=== PATIENT | female | born 1970 | race Caucasian/White ===

== ENCOUNTER 2016-10-15 19:49 | Inpatient (IN) | payer BC ==
[2016-10-15] MEDS ORDERED: NS 0.9% 1000 ML* 1,000 ML IV ONE (20:10)
--- NOTE | 2016-10-15 20:48 | ED ---
Blas Traylor SooYoung, scribed for Sixto iVllar MD on 10/15/16 at 2005 . Substance Abuse/Use - HPI Summary HPI Summary: LEVEL 5 CAVEAT: HPI LIMITED DUE TO PT CONDITION, OVERDOSE. A 46 y/o F MARINA presents to ED after overdose onset approx 1500 [employer]. Per EMS report, pt took approx 15-30 Xanax with wine today due to SI.. Pt is arousable with sternal rub at bedside. Pt is sleeping at bedside. - History Of Current Complaint Chief Complaint: EDSubstanceAbuse Stated Complaint: OVERDOSE/ETOH Time Seen by Provider: 10/15/16 20:00 Hx Obtained From: Patient Ingestion History: Type/Name Of Drug - Xanax, wine Overdose Characteristics: Oral Associated Signs And Symptoms: Intentional Ingestion, Other: - pos: SI Related Hx: Suicidal - Allergies/Home Medications Allergies/Adverse Reactions: Allergies Allergy/AdvReac Type Severity Reaction Status Date / Time No Known Allergies Allergy Verified 10/15/16 20:14 PMH/Surg Hx/FS Hx/Imm Hx Previously Healthy: No Psychiatric History: Reports: Hx Depression, Hx Bipolar Disorder Infectious Disease History: Denies: Traveled Outside the [place] in Last 30 Days - Family History Family History: LEVEL 5 CAVEAT: FHx/SHx LIMITED DUE TO PT CONDITION, OVERDOSE. Review of Systems - ROS Summary Review of Systems Summary: LEVEL 5 CAVEAT: ROS LIMITED DUE TO PT CONDITION, OVERDOSE. Positive: Other - pos: overdose Positive: Other - pos: SI All Other Systems Reviewed And Are Negative: No Physical Exam Triage Information Reviewed: Yes Vital Signs On Initial Exam: Initial Vitals BP 114/76 10/15/16 19:58 Vital Signs Reviewed: Yes Appearance: Positive: No Pain Distress, Thin Skin: Positive: Warm Head/Face: Positive: Normal Head/Face Inspection Eyes: Positive: BRITTNEE ENT: Positive: Hearing grossly normal Neck: Positive: Supple Respiratory/Lung Sounds: Positive: Clear to Auscultation, Breath Sounds Present Cardiovascular: Positive: RRR Abdomen Description: Positive: Nontender, Soft Bowel Sounds: Positive: Present Musculoskeletal: Positive: Strength/ROM Intact Neurological: Positive: Alert, Oriented to Person Place, Time Psychiatric: Positive: Depressed Diagnostics - Vital Signs Vital Signs Temp Pulse Resp BP Pulse Ox 10/15/16 20:06 99 F 100 16 116/75 100 10/15/16 20:00 99 20 116/75 100 10/15/16 19:59 98 27 100 10/15/16 19:58 114/76 - Laboratory Result Diagrams: 10/15/16 20:47 10/15/16 20:47 Lab Statement: Any lab studies that have been ordered have been reviewed, and results considered in the medical decision making process. - EKG 1 EKG Rhythm: Sinus Rhythm Re-Evaluation - Re-Evaluation First Eval Change: Unchanged - pt evaluated by crisis, will admit Course/Dx - Course Course Of Treatment: Pt is medically cleared for MHE at 0132. - Diagnoses Provider Diagnoses: Suicidal ideations - Physician Notifications Instructed by Provider To: Admit As Inpatient Discharge - Discharge Plan Condition: Fair Disposition: ADMITTED TO [facility] Instructions: Per completion of a mental health evaluation, you are cleared for release and do not require inpatient psychiatric hospitalization at this time. Please go to nearest emergency room or call 911 if safety concerns arise or condition worsens. Important Phone Numbers: [facility] [phone] Suicide Prevention and Crisis Services [phone] [facility] Suicide Prevention Lifeline [phone] ([phone]) [facility] [phone] Alcoholics Anonymous [phone] [facility] [phone] [place] [employer] [phone] The documentation as recorded by the Blas penny SooYoung accurately reflects the service I personally performed and the decisions made by me, Sixto Villar MD.
[2016-10-15 20:57] LABS: Hematocrit 36 % (35-47); Hemoglobin 12.4 g/dl (12.0-16.0); Mean Corpuscular HGB Conc 35 g/dl (31-36); Mean Corpuscular Hemoglobin 35 pg (27-31); Mean Corpuscular Volume 99 fL (80-97); Mean Platelet Volume 7 um3 (7.4-10.4); Red Blood Count 3.59 10^6/ul (4.0-5.4); Red Cell Distribution Width 13 % (10.5-15); White Blood Count 5.2 10^3/ul (3.5-10.8)
[2016-10-15 21:14] LABS: ALT 19 U/L (7-52); AST 17 U/L (13-39); Albumin 3.9 g/dL (3.2-5.2); Alkaline Phosphatase 43 U/L (34-104); Anion Gap 10 mmol/L (2-11); BUN/Creatinine Ratio 18.6 (8-20); Blood Urea Nitrogen 16 mg/dL (6-24); CO2 Carbon Dioxide 17 mmol/L (22-32); Calcium 8.6 mg/dL (8.6-10.3); Chloride 112 mmol/L (101-111); EGFR African American 92.2 (>60); EGFR Non-African American 71.7 (>60); Globulin 2.6 g/dL (2-4); Glucose 89 mg/dL (70-100); Potassium 3.7 mmol/L (3.5-5.0); Sodium 139 mmol/L (133-145); Total Protein 6.5 g/dL (6.4-8.9)
[2016-10-15 21:42] LABS: Acetaminophen < 15 mcg/mL; Alcohol 206 mg/dL (<10); Salicylate < 2.50 mg/dL (<30)
[2016-10-16] MEDS ORDERED: Mouth Piece, Nicotine* 1 EACH CARTRIDGE INH SCH (07:24)
[2016-10-16] MEDS ORDERED: Al Hydrox/Mg Hydrox/Simet LIQ* 30 ML UDC PO PRN (07:24)
[2016-10-16] MEDS ORDERED: Acetaminophen TAB* 325 MG PO PRN (07:24)
[2016-10-16] MEDS ORDERED: Nicotine GUM* 2 MG PO PRN (07:24)
[2016-10-16] MEDS ORDERED: chlorproMAZINE TAB* 50 MG Q6H PRN AGITATION PO (07:24)
[2016-10-16] MEDS ORDERED: Nicotine Inhaler* 10 MG AMP INH PRN (07:24)
[2016-10-16] MEDS ORDERED: LORazepam IM* PER WAM PARAMETERS IM SCH (08:00)
[2016-10-16] MEDS ORDERED: LORazepam TAB(*) WAM SCALE 0-6 MG PO SCH (08:00)
[2016-10-16] MEDS: Vitamin THERAPEUTIC TAB PO SCH (09:19)
[2016-10-16] MEDS: Thiamine TAB* 100 MG TAB DAILY (@ T+1) PO SCH (09:19)
[2016-10-16] MEDS: Folic Acid TAB* 1 MG DAILY PO SCH (09:19)
--- NOTE | 2016-10-16 12:18 | PN ---
MHU: Group Therapy Note - Service Type Service Type: 08063 Group Psychotherapy - Cognitive Behavioral Group Therapy ( CBT):Patient was attentive and participatory in CBT programming this morning, and remained in good behavioral control. Patient expressed positive insights regarding relevant treatment interventions and goals.
[2016-10-16] MEDS ORDERED: BuPROPion XL* 300 MG TAB.XL PO SCH (13:00)
[2016-10-16] MEDS: BuPROPion XL* 150 MG TAB.XL PO SCH (13:25)
[2016-10-16] MEDS: Acyclovir* 400 MG TAB PO SCH ×2 (13:25→21:13)
--- NOTE | 2016-10-16 15:31 | ADMNOTE ---
Identification - Identify Employment Status: Unemployed Hx Psychiatric Hospitalization: Yes - In [place] Prior Psychiatric Diagnosis: MDD and Alcohol use d/o Arrived to Hospital Via: Ambulatory History - Objective HPI: 46 y/o WF, mother of 2 children, unknown to this hospital was brought into the ED following an intentional OD on 15 Xanax( .25mg pills) and drinking 2 bottles of wine. Denied suicide attempts or intent at first and later her sister called to report about couple of other serious suicide attempts one requiring intubation. Acknowledges long h/o depression and alcohol dependence. Is in lot of stree related to impending divorce and child custody issue. Exam Appearance: Thin Framed Hygiene: Normal Grooming: Fairly Well Kept Psychomotor Activities: Abnormal-Decreased Attitude and Relatedness: Superficially Cooperative Eye Contact: Poor - Speech Quality: Unpressured Latencies: Normal Quantity: Appropriate Patient's Decription of Mood: "Fine" Observed Affect: Depressed Patient's Thought Process: Coherent, Goal Directed Thought Content: No Passive Wish, No Suicidal Planning, No Homicidal Ideation, No Paranoid Ideation Experiencing Hallucinations: No, Sensorium is Clear Type of Hallucinations: Visual: No, Auditory: No, Command: No Level of Consciousness: Alert Orientation: Yes Intact, Yes Orientated to Time, Yes Orientated to Place, Yes Orientated to Person Impulse Control: Impaired Insight and Judgement: Impaired Impression - Impression Merits Inpatient Hospitalization: Yes - [place] Mental Illness: Major Depressive d/o, recurrent, severe w/o psychosis. Alcohol use d/o - [place] Medical Illness: S/P OD/ Suicide attempt. Plan - Treatment Plan Continued Medication Management: Continue Outpt Medication Medications: Current Medications Acetaminophen (Tylenol Tab*) 650 mg PO Q4H PRN PRN Reason: PAIN or TEMP > 101 F Acyclovir (Zovirax Tab*) 400 mg PO TID [facility]END[facility] TO [facility] Last Admin: 10/16/16 13:25 Dose: 400 mg Al Hydrox/Mg Hydrox/Simethicone (Maalox Plus*) 30 ml PO Q4H PRN PRN Reason: INDIGESTION Atomoxetine HCl (Strattera(Nf)) 100 mg PO DAILY [facility] Bupropion HCl (Wellbutrin Xl *) 300 mg PO DAILY [facility] Last Admin: 10/16/16 13:25 Dose: 300 mg Chlorpromazine HCl (Thorazine Tab*) 50 mg PO Q6H PRN PRN Reason: AGITATION Device (Nicotine Mouth Piece*) 1 each INH .CARTRIDGE [facility]END[facility] Diphenhydramine HCl (Benadryl Po*) 50 mg PO Q6H PRN PRN Reason: AGITATION/INSOMNIA Folic Acid (Folvite Tab*) 1 mg PO DAILY [facility] Last Admin: 10/16/16 09:19 Dose: 1 mg Lorazepam (Ativan Inj*) 0 - 6 mg IM .PER [facility] [employer] [place] PRN Reason: Protocol Lorazepam (Ativan Tab(*)) 0 - 6 mg PO .PER WAM [employer]ERS [facility] PRN Reason: Protocol Multivitamins (Theragran Tab*) 1 tab PO DAILY [facility] Last Admin: 10/16/16 09:19 Dose: 1 tab Nicotine (Nicotine Inhaler*) 10 mg INH Q2H PRN PRN Reason: CRAVING Nicotine Polacrilex (Nicotine Gum*) 2 mg PO Q2H PRN PRN Reason: CRAVING Thiamine HCl (Vitamin B-1 Tab*) 100 mg PO DAILY [facility] Last Admin: 10/16/16 09:19 Dose: 100 mg Topiramate (Topamax(*)) 50 mg PO BEDTIME [facility] Topiramate (Topamax(*)) 25 mg PO DAILY [facility] - Discharge Plan Discharge Plan: Drug/Alcohol Rehab Outpatient Program: [facility]
--- NOTE | 2016-10-16 17:55 | HP ---
HISTORY AND PHYSICAL: DATE OF ADMISSION: IDENTIFYING DATA: Khalida is a 46-year-old , unemployed, female from [facility], visiting her mother who lives here in [facility], was brought into the emergency department following an intentional overdose and drinking 2 bottles of wine during the day. CHIEF COMPLAINT: "I have lots of stress in my life, but I didn't mean to commit suicide this time." HISTORY OF PRESENT ILLNESS: This 46-year-old female with two prior serious suicide attemp ts in the past, one resulting in ICU admission with life support and the other one was also very ser ious. She was brought into the [facility] Emergency Department yesterday following her t hird suicide attempt with overdosing on 15 of 0.25 mg Xanax and drinking 2 bottles of wine within sh ort period of time with an intention to end her life. She denies this to be a suicide attempt, ashleylesa mitesh says that she was too tired and wanted to go to sleep. It is evident that Khalida is trying to minimize her problems, being evasive and trying to go home as soon as she can. During her evaluati on in the emergency department, she totally minimizes her problem evaded the assessment of her real problems until collateral was obtained from her sister who is a nurse. Her sister reported that Vaughn istina attempted suicide twice in the past and is really minimizing her problem and she is not safe to go home, and depending on that information, we decided to admit her on an involuntary basis. Dur ing today's evaluation, Khalida reports that she had struggled with depression as well as alcoholi sm for a long time. She denies any mood, thoughts, or perceptual disturbances today; however, it is evident that she is depressed. Her stressors are many, but the important ones are that she recentl y was told by her that he did not want to be with her anymore and does not love her anymore either. Khalida is unemployed, totally dependent on her . She is mother of 2 children, ag es 15 and 9. Moreover, her mother who is 82 years old got into a car recently and lives alone in [facility] and cannot support and care for herself. As mentioned earlier, Khalida is very difficult to evaluate because of her uncooperative nature as well as minimizing her problems. PAST PSYCHIATRIC HISTORY: Remarkable for two prior psychiatric hospitalizations both following seri ous overdose with an intention to commit suicide. She has been under treatment and took all kinds o f psychotropic medications including tricyclics, SSRIs, SNRIs, as well as atypical antipsychotics. Currently, she is taking Wellbutrin XL 300 mg daily. Her psychiatrist is in [place]. PAST MEDICAL HISTORY: Unremarkable. ALLERGIES: No known drug allergies. SUBSTANCE ABUSE HISTORY: As mentioned in the HPI, Khalida minimizes her drug and alcohol history, although she states she has struggled with alcohol use for years, may have gone through some rehabs in the past. She states she was sober before she came to see her mother in [place]; however, becaus e of the stressors mentioned in the HPI, she relapsed and became seriously depressed and attempted t o commit suicide. Denies use of any other illicit substances. Again, Khalida is not a reliable istorian when it comes to her mental health or substance use history. FAMILY HISTORY: Per Khalida, she has one sister and two brothers, one of her older brothers is de ceased from natural reason. Khalida reports that all her siblings have either depression or have alcohol problems. PERSONAL SOCIAL HISTORY: As much as we could obtain from Khalida, she is a 46- year-old female, w as born in [place], moved to [place] when she was a child, went to school through high school in [place] area to go to [employer]. She never finished her masters before she moved to [facility], got with a gentleman from [facility], who is a banker, was moving place to place due to his job. Khalida has a 15-year-old daughter and a 9-year-old son. Her daughter is here with her in [place] right now. Her son is in [facility] with her . Evidently, her told her th at he does not want her back and does not love her anymore. She reports other than losing her dad ajith hen she was 15, there was no major trauma or stressors as she was growing up. She also denies any l egal problems. PHYSICAL EXAMINATION Physical exam was offered. She declined; however, I reviewed her ER records and physical exam inclu ding labs, which were all unremarkable. She was placed on [facility] protocol, which was unremarkable as ajith hanson. MENTAL STATUS EXAMINATION: Khalida is a thin-framed, healthy-appearing, 46-year- old female brittnee oro in bed, minimally cooperative with the interview process indicating that she is tired from overdos e and drinking too much yesterday. However, she is alert and oriented to time, place, and person. M akes poor eye contact. Speech is slow and soft; however, goal directed. Describes her mood as "oka y." Observed affect appears to be restricted and dysphoric. Denies any perceptual disturbances or delusions. Also, denies any current suicidal or homicidal ideations. Intelligence appears to be av erage as evidenced by her vocabulary, educational background, and fund of knowledge. Memory functio ns are intact in all spheres. Insight and judgment impaired. SUMMARY: This 46-year-old female with extensive history of alcohol dependence and history of depres gosia with two prior suicide attempts, one very serious, was rehospitalized because of her third suic leticia attempt by overdosing and drinking excessively in short period of time in the context of serious stressors including possible divorce. MENTAL HEALTH DIAGNOSES: Major depressive disorder, recurrent, severe without psychotic features; a lcohol use disorder; rule out substance-induced depression. PHYSICAL HEALTH DIAGNOSIS: Status post overdose on Xanax. TREATMENT RECOMMENDATIONS: Khalida will remain hospitalized on the behavioral health unit for fur ther evaluation and for her safety. Supportive milieu, individual, and group therapy will be initia alona and the patient will be encouraged to attend those meetings as she tolerates. Her code status w ill remain full. I will resume her Wellbutrin XL at current dose. Further psychopharmacological ma nagement will be deferred to assigned psychiatrist on the unit. Collaterals from prior hospitalizat ion and family members will be collected as the patient appears to be minimally cooperative and evas sky. [id number]/CPS #: [id number]
[2016-10-16] MEDS: Topiramate TAB(*) 25 MG PO SCH (21:13)
[2016-10-17] MEDS: CMCS:Atomoxetine(NF) 25 MG CAP PO SCH (09:13)
[2016-10-17] MEDS: Acyclovir* 400 MG TAB PO SCH ×3 (09:14→21:10)
[2016-10-17] MEDS: BuPROPion XL* 150 MG TAB.XL PO SCH (09:14)
[2016-10-17] MEDS: Folic Acid TAB* 1 MG DAILY PO SCH (09:15)
[2016-10-17] MEDS: Thiamine TAB* 100 MG TAB DAILY (@ T+1) PO SCH (09:16)
[2016-10-17] MEDS: Vitamin THERAPEUTIC TAB PO SCH (09:16)
[2016-10-17] MEDS: Topiramate TAB(*) 25 MG PO SCH ×2 (09:17→21:10)
--- NOTE | 2016-10-17 16:36 | PN ---
Subjective - Subjective Service Type: 71851 Hosp care 15 min low complexity Subjective: Neisha appears to be out of bed and more visible in the milieu although not intrecting much with peers. She denies any problems and looks brighter/ pleasent. Denies hallucinations, paranoia or SI/HI. Nursing didn't report any concerns. Objective - Appearance Appearance: Thin Framed Dysmorphic Features: No Hygiene: Normal Grooming: Fairly Well Kept - Behavior Psychomotor Activities: Normal Exhibits Abnormal Movement: No - Attitude and Relatedness Attitude and Relatedness: Appropriate Eye Contact: Fair - Speech Quality: Unpressured Latencies: Normal Quantity: Appropriate - Mood Patient's Decription of Mood: "Fine" - Affect Observed Affect: Non-labile Affect Consistent with: Euthymia - Thought Process Patient's Thought Process: Coherent, Goal Directed Thought Content: No Passive Wish, No Suicidal Planning, No Homicidal Ideation, No Paranoid Ideation - Sensorium Experiencing Hallucinations: No, Sensorium is Clear Type of Hallucinations: Visual: No, Auditory: No, Command: No - Level of Consciousness Level of Consciousness: Alert Orientation: Yes Intact, Yes Orientated to Time, Yes Orientated to Place, Yes Orientated to Person - Impulse Control Impulse Control: Intact - Insight and Judgement Insight and Judgement: Fair - Group Participation Particating in Group Activities: No - Medication Management Medication Management Adherence: Yes Assessment - Assessment Merits Inpatient Hospitalization: For Immediate Safety, For Stabilization, Pending Safe DC Plan Clinical Impression: Appears to be improving. Plan - Plan Treatment Plan: Name: NEISHA LAUREN Birthdate: 1970 [id number] Continued Medication Management: Continue Outpt Medication Medications: Current Medications Acetaminophen (Tylenol Tab*) 650 mg PO Q4H PRN PRN Reason: PAIN or TEMP > 101 F Acyclovir (Zovirax Tab*) 400 mg PO TID [facility] Last Admin: 10/17/16 14:45 Dose: 400 mg Al Hydrox/Mg Hydrox/Simethicone (Maalox Plus*) 30 ml PO Q4H PRN PRN Reason: INDIGESTION Atomoxetine HCl (Strattera(Nf)) 100 mg PO DAILY [facility] Last Admin: 10/17/16 09:13 Dose: 100 mg Bupropion HCl (Wellbutrin Xl *) 300 mg PO DAILY [facility] Last Admin: 10/17/16 09:14 Dose: 300 mg Chlorpromazine HCl (Thorazine Tab*) 50 mg PO Q6H PRN PRN Reason: AGITATION Device (Nicotine Mouth Piece*) 1 each INH .CARTRIDGE [facility] Diphenhydramine HCl (Benadryl Po*) 50 mg PO Q6H PRN PRN Reason: AGITATION/INSOMNIA Folic Acid (Folvite Tab*) 1 mg PO DAILY [facility] Last Admin: 10/17/16 09:15 Dose: 1 mg Multivitamins (Theragran Tab*) 1 tab PO DAILY [facility] Last Admin: 10/17/16 09:16 Dose: 1 tab Nicotine (Nicotine Inhaler*) 10 mg INH Q2H PRN PRN Reason: CRAVING Nicotine Polacrilex (Nicotine Gum*) 2 mg PO Q2H PRN PRN Reason: CRAVING Thiamine HCl (Vitamin B-1 Tab*) 100 mg PO DAILY [facility] Last Admin: 10/17/16 09:16 Dose: 100 mg Topiramate (Topamax(*)) 50 mg PO BEDTIME [facility] Last Admin: 10/16/16 21:13 Dose: 50 mg Topiramate (Topamax(*)) 25 mg PO DAILY [facility] Last Admin: 10/17/16 09:17 Dose: 25 mg - Discharge Plan Discharge Plan: Outpatient Follow Up Outpatient Program: [facility]
[2016-10-18 04:54] LABS: Urine Bilirubin Negative (Negative); Urine Glucose Negative (Negative); Urine Nitrite Negative (Negative)
[2016-10-18 05:13] LABS: Benzodiazepine Urine Screen Presumptive Positive (None Detect)
[2016-10-18] MEDS: Acyclovir* 400 MG TAB PO SCH ×2 (09:10→13:57)
[2016-10-18] MEDS: BuPROPion XL* 150 MG TAB.XL PO SCH (09:11)
[2016-10-18] MEDS: Thiamine TAB* 100 MG TAB DAILY (@ T+1) PO SCH (09:11)
[2016-10-18] MEDS: Vitamin THERAPEUTIC TAB PO SCH (09:11)
[2016-10-18] MEDS: Folic Acid TAB* 1 MG DAILY PO SCH (09:11)
[2016-10-18] MEDS: Topiramate TAB(*) 25 MG PO SCH (09:12)
[2016-10-18] MEDS: CMCS:Atomoxetine(NF) 25 MG CAP PO SCH (09:12)
--- NOTE | 2016-10-18 11:07 | PN ---
MHU: Group Therapy Note - Service Type Service Type: [id number] Group Psychotherapy - Cognitive Behavioral Group Therapy ( CBT):Patient was attentive and participatory in CBT programming this morning, and remained in good behavioral control. Patient expressed positive insights regarding relevant treatment interventions and goals.
--- NOTE | 2016-10-18 12:05 | PN ---
Subjective - Subjective Service Type: 59640 Hosp care 25 min moderate complexity Plan - Plan Treatment Plan: Name: NEISHA LAUREN Birthdate: 1970 [id number] Medications: Current Medications Acetaminophen (Tylenol Tab*) 650 mg PO Q4H PRN PRN Reason: PAIN or TEMP > 101 F Acyclovir (Zovirax Tab*) 400 mg PO TID [facility] Last Admin: 10/18/16 09:10 Dose: 400 mg Al Hydrox/Mg Hydrox/Simethicone (Maalox Plus*) 30 ml PO Q4H PRN PRN Reason: INDIGESTION Atomoxetine HCl (Strattera(Nf)) 100 mg PO DAILY [facility] Last Admin: 10/18/16 09:12 Dose: 100 mg Bupropion HCl (Wellbutrin Xl *) 300 mg PO DAILY [facility] Last Admin: 10/18/16 09:11 Dose: 300 mg Chlorpromazine HCl (Thorazine Tab*) 50 mg PO Q6H PRN PRN Reason: AGITATION Device (Nicotine Mouth Piece*) 1 each INH .CARTRIDGE [facility] Diphenhydramine HCl (Benadryl Po*) 50 mg PO Q6H PRN PRN Reason: AGITATION/INSOMNIA Folic Acid (Folvite Tab*) 1 mg PO DAILY [facility] Last Admin: 10/18/16 09:11 Dose: 1 mg Multivitamins (Theragran Tab*) 1 tab PO DAILY [facility] Last Admin: 10/18/16 09:11 Dose: 1 tab Nicotine (Nicotine Inhaler*) 10 mg INH Q2H PRN PRN Reason: CRAVING Nicotine Polacrilex (Nicotine Gum*) 2 mg PO Q2H PRN PRN Reason: CRAVING Thiamine HCl (Vitamin B-1 Tab*) 100 mg PO DAILY [facility] Last Admin: 10/18/16 09:11 Dose: 100 mg Topiramate (Topamax(*)) 50 mg PO BEDTIME [facility] Last Admin: 10/17/16 21:10 Dose: 50 mg Topiramate (Topamax(*)) 25 mg PO DAILY [facility] Last Admin: 10/18/16 09:12 Dose: 25 mg
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
[2016-10-18] MEDS ORDERED: CMC:Lurasidone (NF) 40 MG TAB PO SCH (14:00)
[2016-10-18 17:35] VITALS: BP 129/92
== END 2016-10-18 17:00 | disposition home or self-care (01) | DRG 751 ==
LOC: ED 19:49 → BSU 10-16 05:41
PROVIDERS: ADMIT Psychiatry & Neurology Psychiatry; ATTEND Psychiatry & Neurology Psychiatry
PROC: HZ2ZZZZ Detoxification Services for Substance Abuse Treatment (ICD-10-PCS; principal; 2016-10-16)
DX: F33.2 Major depressive disorder, recurrent severe without psychotic features (principal); F10.10 Alcohol abuse, uncomplicated; Y90.7 Blood alcohol level of 200-239 mg/100 ml; T42.4X2A Poisoning by benzodiazepines, intentional self-harm, initial encounter; Y92.9 Unspecified place or not applicable; X58.XXXA Exposure to other specified factors, initial encounter
CPT/HCPCS: 36415; 80053; 80307; 80320; 80329; 81003; 83605; 85025; 90853; 93005; 99222; 99231; 99238; A9270-GY; G0480